=== PATIENT | female | born 1980 | race African-American/Black ===

== ENCOUNTER 2023-06-25 08:00 | Inpatient (IN) | payer BC ==
[2023-07-12] MEDS ORDERED: Bupivacaine 0.25% HCL 30 ML VIAL ONE (06:57)
[2023-07-12] MEDS ORDERED: EPINEPHrine 1 MG/ML VIAL ONE (06:57)
[2023-07-12] MEDS ORDERED: Propofol 500 MG/50 ML VIAL ONE (07:01)
[2023-07-12] MEDS ORDERED: PROPOFOL 20 ML ONE (07:04)
[2023-07-12] MEDS ORDERED: Lidocaine 1% PF 5 ML VIAL ONE ×2 (07:04→07:05)
[2023-07-12] MEDS ORDERED: Ondansetron PF 4 MG/2 ML Vial ONE ×2 (07:04→08:21)
[2023-07-12] MEDS ORDERED: Dexamethasone 20 MG/5 ML VIAL ONE (07:04)
[2023-07-12] MEDS ORDERED: fentaNYL PF 100 MCG/2 ML SYRINGE ONE (07:04)
[2023-07-12] MEDS ORDERED: Rocuronium Bromide 10 MG/ML (10ML VIAL) ONE (07:05)
[2023-07-12] MEDS ORDERED: Ketamine In 0.9 % NaCl 50 MG/5 ML SYRINGE ONE (07:05)
[2023-07-12] MEDS ORDERED: CEFAZOLIN 2 GM VIAL ONE (07:22)
[2023-07-12] MEDS ORDERED: Sodium Chloride 0.9% 100 ML ONE (07:23)
[2023-07-12] MEDS ORDERED: PHENYLEPHRINE-NS 100 MCG/ML 10 ML SYRINGE ONE (07:49)
[2023-07-12] MEDS ORDERED: ePHEDrine Sulfate 50 MG/10 ML VIAL ONE (07:52)
[2023-07-12] MEDS ORDERED: ACTIVE PCA FS PRN (08:15)
[2023-07-12] MEDS ORDERED: FENTANYL 500 MCG/10 ML VIAL 2,000 MCG in Sodium Chloride 0.9% 60 ML IV PRN (08:15)
[2023-07-12] MEDS ORDERED: diphenhydrAMINE 50 MG/ML VIAL IM PRN (08:15)
[2023-07-12] MEDS ORDERED: diphenhydrAMINE 25 MG CAP PO PRN (08:15)
[2023-07-12] MEDS ORDERED: Ondansetron HCl/PF 4 MG/2 ML Vial IVP PRN (08:15)
[2023-07-12] MEDS ORDERED: Naloxone HCl 0.4 mg/ml Vial IV PRN (08:15)
[2023-07-12] MEDS ORDERED: diphenhydrAMINE 50 MG/ML VIAL IVP PRN ×2 (08:15→12:02)
[2023-07-12] MEDS ORDERED: Promethazine HCl 25 MG/ML VIAL IM PRN ×3 (08:15→12:02)
[2023-07-12] MEDS ORDERED: SUGAMMADEX SODIUM 200 MG/2 ML VIAL ONE (08:28)
[2023-07-12] MEDS ORDERED: MINERAL OIL/WHITE PETROLATUM 3.5 GM TUBE ONE (08:31)
[2023-07-12] MEDS ORDERED: Lidocaine 2% 6 ML (Jelly) SYR ONE (09:38)
[2023-07-12] MEDS ORDERED: Ketorolac Tromethamine 30 MG/ML VIAL ONE (10:16)
[2023-07-12] MEDS ORDERED: Dextrose 5% in Water 1,000 ML IV PRN (12:02)
[2023-07-12] MEDS ORDERED: Ipratropium/Albuterol 3 ML NEB NEB PRN (12:02)
[2023-07-12] MEDS ORDERED: Glucagon 1 MG/ML KIT IM PRN (12:02)
[2023-07-12] MEDS ORDERED: Dextrose 50% Abboject 50 ML SYRINGE SLOW IVP PRN (12:02)
[2023-07-12] MEDS ORDERED: Ondansetron PF 4 MG/2 ML Vial IVP PRN (12:02)
[2023-07-12] MEDS: D5 1/2 NS w/20 mEq KCL 1,000 ML IV SCH ×2 (12:43→20:26)
[2023-07-12] MEDS: Ondansetron PF 4 MG/2 ML Vial IVP PRN ×2 (15:35→20:26)
[2023-07-12 19:57] VITALS: BMI 40.8
[2023-07-12] MEDS ORDERED: Prochlorperazine Edisylate 10 MG in Sodium Chloride 0.9% 50 ML IVPB PRN (21:36)
[2023-07-13] MEDS: hydrALAZINE 20 MG/ML VIAL SLOW IVP PRN ×2 (00:50→12:24)
[2023-07-13] MEDS: D5 1/2 NS w/20 mEq KCL 1,000 ML IV SCH ×2 (04:10→11:52)
[2023-07-13 05:58] LABS: #Monocytes 1.3 thou/uL (0.11-0.59); #Neutrophils 10.1 thou/uL (1.40-6.50); %Basophils 0.1 % (0.0-1.0); %Lymphocytes 14.6 % (21.0-51.0); %Monocytes 9.3 % (0.0-10.0); %Neutrophils 75.6 % (42.0-75.0); Hematocrit 40.2 % (36.0-47.0); Mean Corpuscular HGB CONC 32.3 g/dL (32.0-36.0); Mean Corpuscular Hemoglobin 26.2 pg (27.0-31.0); Mean Corpuscular Volume 80.9 fl (78.0-98.0); Mean Platelet Volume 9.1 fL (7.4-10.4); Platelet Count 302 10x3/uL (130-400); RBC Distribution Width 15.8 % (11.5-14.5); Red Blood Cell (RBC) Count 4.97 mill/uL (4.20-5.40); White Blood Cell (WBC) Count 13.4 10x3/uL (4.8-10.8)
[2023-07-13] MEDS ORDERED: tiZANidine HCl 4 MG TAB PO PRN (06:05)
[2023-07-13] MEDS ORDERED: Hydrocodone-Acetamin 15 ML UDCUP PO PRN (06:05)
[2023-07-13] MEDS ORDERED: Diazepam 5 MG TAB PO PRN (06:05)
[2023-07-13 06:17] LABS: Anion Gap 10 mmol/L (10-20); BUN (Urea Nitrogen) 5 mg/dL (7.0-18.7); Calc. Creatinine Clearance 143 mL/min (70-130); Calcium 8.8 mg/dL (7.8-10.44); Carbon Dioxide 23 mmol/L (22-29); Chloride 107 mmol/L (98-107); Estimated GFR 93; Glucose 129 mg/dL (70-105); Potassium 3.9 mmol/L (3.5-5.1); Sodium 136 mmol/L (136-145)
[2023-07-13] MEDS ORDERED: Pantoprazole 40 MG VIAL IVP SCH (09:00)
[2023-07-13 12:49] VITALS: BP 182/100; TEMP 98.3
== END 2023-07-13 15:49 | disposition home or self-care (01) | DRG 621 ==
LOC: SURG A 07-12 06:25
PROVIDERS: ADMIT Surgery; ATTEND Surgery
PROC: 0DB64Z3 Excision of Stomach, Percutaneous Endoscopic Approach, Vertical (ICD-10-PCS; principal; 2023-07-12)
PROC: 8E0W3CZ Robotic Assisted Procedure of Trunk Region, Percutaneous Approach (ICD-10-PCS; 2023-07-12)
DX: E66.01 Morbid (severe) obesity due to excess calories (principal); Z68.41 Body mass index [BMI] 40.0-44.9, adult; F32.A Depression, unspecified
CPT/HCPCS: 36415; 80048; 85025; 88307; 88342; C9113; J0171; J0360; J1100; J1200; J1650; J1885; J2405; J2704; J3480; J3490; S0020

== ENCOUNTER 2023-06-25 10:13 | Outpatient (CLI) | payer BC ==
[2023-06-25 11:13] LABS: #Eosinphils 0.1 10x3/uL (0.0-0.5); #Monocytes 0.6 10x3/uL (0.0-1.1); #Neutrophils 2.3 10x3/uL (1.5-8.4); %Basophils 0.6 % (0.0-2.0); %Eosinophils 1.2 % (0.0-6.0); %Lymphocytes 42.1 % (18.0-47.0); %Monocytes 11.3 % (0.0-10.0); %Neutrophils 44.6 % (40.0-75.0); Hematocrit 40.1 % (34.9-44.5); Hemoglobin 12.8 g/dL (12.0-15.5); Mean Corpuscular HGB CONC 31.9 g/dL (32.0-36.0); Mean Corpuscular Hemoglobin 25.9 pg (27.0-33.0); Mean Platelet Volume 8.8 fl (7.4-10.4); Platelet Count 325 10x3/uL (150-450); RBC Distribution Width 15.6 % (11.5-14.5); Red Blood Cell (RBC) Count 4.95 10x6/uL (3.90-5.03); White Blood Cell (WBC) Count 5.1 10x3/uL (3.5-10.5)
[2023-06-25 11:42] LABS: Anion Gap 11 mmol/L (10-20); BUN (Urea Nitrogen) 8 mg/dL (7.0-18.7); Calc. Creatinine Clearance 0 mL/min (70-130); Calcium 9.1 mg/dL (7.8-10.44); Carbon Dioxide 24 mmol/L (22-29); Chloride 109 mmol/L (98-107); Estimated GFR 81; Glucose 90 mg/dL (70-105); Sodium 140 mmol/L (136-145)
== END 2023-06-25 10:14 | disposition home or self-care (01) ==
LOC: LABBT 10:13
PROVIDERS: ATTEND Surgery
DX: Z01.818 Encounter for other preprocedural examination (principal); E66.01 Morbid (severe) obesity due to excess calories
CPT/HCPCS: 80048; 85025; 93005; 93010

== ENCOUNTER 2023-08-09 13:01 | Day surgery (SDC) | payer BC ==
[~2023-08-09 13:01] MED LIST: Ondansetron PF 4 MG/2 ML Vial IVP PRN; Sodium Chloride 0.9% 1,000 ML IV SCH; Thiamine HCl 100 MG, Multivitamins, Adult 10 ML in Sodium Chloride 0.9% 1,000 ML IVPB SCH
[2023-08-09 15:48] VITALS: BP 131/80; TEMP 98
== END 2023-08-09 16:10 | disposition home or self-care (01) ==
LOC: ONC/OP 13:01
PROVIDERS: ATTEND Surgery
DX: E86.0 Dehydration (principal)
CPT/HCPCS: 96361; 96365; J3411; J7050

== ENCOUNTER 2025-04-21 08:52 | Outpatient (CLI) | payer BC ==
[2025-04-21] MEDS ORDERED: E-Z-HD 98% W/W 340GM BOT (x-ray ONLY) ONE (09:03)
[2025-04-21] MEDS ORDERED: Barium Sulfate 96% 176 GM BOT (xray ONLY) ONE (09:03)
== END 2025-04-21 08:53 | disposition home or self-care (01) ==
LOC: RAD 08:52
PROVIDERS: ATTEND Surgery
DX: R13.19 Other dysphagia (principal)
CPT/HCPCS: 74220